=== PATIENT | male | born 1955 | race Caucasian/White ===

== ENCOUNTER 2021-12-31 09:50 | Observation (INO) | payer MEDICARE ==
[~2021-12-31] VITALS: Ht 177.8 cm; Wt 127.5 kg
[2021-12-31] MEDS ORDERED: AMLO10 PO (15:35)
[2021-12-31] MEDS ORDERED: JARDIANCE25 MG PO (15:36)
[2021-12-31] MEDS ORDERED: CARV6.25 PO (15:36)
[2021-12-31] MEDS ORDERED: FURO40 PO (15:36)
[2021-12-31] MEDS ORDERED: HYDCHL25 PO (15:36)
[2021-12-31] MEDS ORDERED: KETOROLAC TROMET5 ML BOTHEYES (15:36)
[2021-12-31] MEDS ORDERED: METF500C PO (15:37)
[2021-12-31] MEDS ORDERED: LISI20 PO (15:37)
[2021-12-31] MEDS ORDERED: Crestor20 MG PO (15:37)
[2021-12-31] MEDS ORDERED: ALDACTONE100 MG PO (15:37)
[2021-12-31] MEDS ORDERED: TOUJEO SOL300 UNIT/2 (15:40)
[2021-12-31 15:50] LABS: Calcium, Ionized (POC) 1.18 mmol/L (1.10-1.46); Chloride (POC) 109 mmol/L (98-108); Creatinine (POC) 1.6 mg/dL (0.8-1.3); Glucose (ISTAT POC) 94 mg/dL (70-99); Hemoglobin (POC) 13.6 g/dL (13.5-17.5); Potassium (POC) 6.4 mmol/L (3.5-5.5); Sodium (POC) 135 mmol/L (135-148); Total CO2 (POC) 20 mmol/L (21-32)
[2021-12-31 16:09] LABS: BASOPHILS ABSOLUTE AUTO 0.06 K/mm3 (0.00-0.23); BASOPHILS PERCENT AUTO 1 % (0-2); EOSINOPHILS ABSOLUTE AUTO 0.49 K/mm3 (0.00-0.68); EOSINOPHILS PERCENT AUTO 5 % (0-6); Hematocrit 41.9 % (37.0-53.0); Hemoglobin 13.3 g/dL (13.5-17.5); IMMATURE GRAN ABSOLUTE AUTO 0.03 K/mm3 (0.00-0.10); IMMATURE GRAN PERCENT AUTO 0 % (0-1); LYMPHOCYTES ABSOLUTE AUTO 1.88 K/mm3 (0.84-5.20); LYMPHOCYTES PERCENT AUTO 17 % (21-46); MONOCYTES ABSOLUTE AUTO 0.91 K/mm3 (0.16-1.47); MONOCYTES PERCENT AUTO 8 % (4-13); Mean Corpuscular HGB Conc 31.7 g/dL (31.5-36.5); Mean Corpuscular Volume 95 fL (80-100); Mean Platelet Volume 10.4 fL (9.1-12.4); NEUTROPHILS ABSOLUTE AUTO 7.41 K/mm3 (1.96-9.15); NEUTROPHILS PERCENT AUTO 69 % (41-73); Platelet Count 323 K/mm3 (150-400); RDW Coefficient Variation 14.1 % (11.7-14.2); RDW Standard Deviation 49.5 fL (35.1-46.3); Red Blood Cell Count 4.43 M/mm3 (4.30-5.90); White Blood Cell Count 10.78 K/mm3 (4.00-11.30)
[2021-12-31 16:29] LABS: Magnesium, Blood 2.8 mg/dL (1.6-2.4)
[2021-12-31 16:33] LABS: Bun/Creatinine Ratio 27.4 (12.0-20.0); Calcium, Blood 9.6 mg/dL (8.5-10.1); Creatinine, Blood 1.64 mg/dL (0.60-1.20)
[2021-12-31 21:57] LABS: Bun/Creatinine Ratio 26.4 (12.0-20.0); Calcium, Blood 9.3 mg/dL (8.5-10.1); Creatinine, Blood 1.44 mg/dL (0.60-1.20); Potassium, Blood 5.2 mmol/L (3.5-5.5)
[2022-01-01 04:13] LABS: BASOPHILS ABSOLUTE AUTO 0.06 K/mm3 (0.00-0.23); BASOPHILS PERCENT AUTO 1 % (0-2); EOSINOPHILS ABSOLUTE AUTO 0.47 K/mm3 (0.00-0.68); EOSINOPHILS PERCENT AUTO 5 % (0-6); Hematocrit 39.7 % (37.0-53.0); Hemoglobin 12.7 g/dL (13.5-17.5); IMMATURE GRAN ABSOLUTE AUTO 0.03 K/mm3 (0.00-0.10); IMMATURE GRAN PERCENT AUTO 0 % (0-1); LYMPHOCYTES ABSOLUTE AUTO 1.62 K/mm3 (0.84-5.20); LYMPHOCYTES PERCENT AUTO 17 % (21-46); MONOCYTES ABSOLUTE AUTO 0.88 K/mm3 (0.16-1.47); MONOCYTES PERCENT AUTO 9 % (4-13); Mean Corpuscular HGB 30.2 pg (26.0-34.0); Mean Corpuscular Volume 95 fL (80-100); Mean Platelet Volume 10.3 fL (9.1-12.4); NEUTROPHILS ABSOLUTE AUTO 6.55 K/mm3 (1.96-9.15); NEUTROPHILS PERCENT AUTO 68 % (41-73); Platelet Count 277 K/mm3 (150-400); RDW Coefficient Variation 14.1 % (11.7-14.2); RDW Standard Deviation 49.2 fL (35.1-46.3); White Blood Cell Count 9.61 K/mm3 (4.00-11.30)
[2022-01-01 04:49] LABS: Albumin, Blood 3.3 g/dL (3.4-5.0); Bilirubin, Total 0.6 mg/dL (0.1-1.0); Bun/Creatinine Ratio 25.9 (12.0-20.0); Calcium, Blood 9.2 mg/dL (8.5-10.1); Creatinine, Blood 1.35 mg/dL (0.60-1.20); Globulin, Blood 3.4 g/dL (2.2-4.0); Potassium, Blood 5.8 mmol/L (3.5-5.5); Total Protein, Blood 6.7 g/dL (6.4-8.2)
--- NOTE | 2022-01-01 05:47 | NUR ---
SHIFT SUMMARY ASSUMED CARE OF PT AT 2100. PT IS A/OX4. INDEPENDNT WITH CANE. PT REPORTS HAVING BAD KNEES. HEART SOUNDS REGULAR BUT URVASHI. PT HR DIPPPED LOW 40BPM WHILE SLEEPING BUT MAINTAINED 60-70 WHILE AWAKE. PT BP ELEVATED, MEDICATED PER EMAR. NO ACTE EVENTS.
[2022-01-01 12:37] LABS: Bun/Creatinine Ratio 25.4 (12.0-20.0); Calcium, Blood 9.9 mg/dL (8.5-10.1); Creatinine, Blood 1.18 mg/dL (0.60-1.20); Potassium, Blood 5.7 mmol/L (3.5-5.5)
--- NOTE | 2022-01-01 14:25 | NUR ---
DISCHARGE NOTE PT A&Ox4, VSS, SpO2> 92% RA. SB 50'S, BASELINE FOR HIM. DISCHARGE INSTRUCTIONS PROVIDED, AT BEDSIDE. PT TAKEN OUT VIA WHEELCHAIR WITH BELONGINGS BY CLINICAL STAFF AT APPROXIMATELY 1430.
== END 2022-01-01 14:20 | disposition home or self-care (01) ==
LOC: ER 09:50 → PCU 09:51
PROVIDERS: Family Medicine; Student in an Organized Health Care Education/Training Program; ADMIT Internal Medicine
DX: E87.5 Hyperkalemia (principal); I12.9 Hypertensive chronic kidney disease with stage 1 through stage 4 chronic kidney disease, or unspecified chronic kidney disease; N18.2 Chronic kidney disease, stage 2 (mild); E11.22 Type 2 diabetes mellitus with diabetic chronic kidney disease; E78.5 Hyperlipidemia, unspecified; G47.33 Obstructive sleep apnea (adult) (pediatric); Z79.899 Other long term (current) drug therapy; Z79.84 Long term (current) use of oral hypoglycemic drugs; Z79.4 Long term (current) use of insulin
CPT/HCPCS: 36415; 71045; 80047; 80048; 80053; 82947; 83735; 83880; 85014; 85025; 93005; 93010; 94644; 94660; 94664; 94762; 96365; 96372; 96375; 99284-25; A9270; G0378; J0360; J0610; J1650; J1815; J7030; J7799

== ENCOUNTER → 2022-11-18 | Outpatient (CLI) | payer MEDICARE ==
[~2022-11-18] MED LIST: ALDACTONE100 MG PO; AMLO10 PO; CARV6.25 PO; Crestor20 MG PO; FURO40 PO; HYDCHL25 PO; JARDIANCE25 MG PO; KETOROLAC TROMET5 ML BOTHEYES; LISI20 PO; METF500C PO; TOUJEO SOL300 UNIT/2
[2022-11-18 15:45] LABS: Prostate Specific Antigen 0.339 ng/mL (0.000-4.000)
[2022-11-19 22:10] LABS: HEMOGLOBIN A1C 8.5 % (4.8-5.6)
== END | disposition home or self-care (01) ==
LOC: LAB 09:40 → LAB SHORT 09:40
PROVIDERS: Family Medicine
DX: E11.37X1 Type 2 diabetes mellitus with diabetic macular edema, resolved following treatment, right eye (principal); E11.21 Type 2 diabetes mellitus with diabetic nephropathy; E11.59 Type 2 diabetes mellitus with other circulatory complications; E11.42 Type 2 diabetes mellitus with diabetic polyneuropathy
CPT/HCPCS: 83036; G0103

== ENCOUNTER → 2024-04-05 | Outpatient (CLI) | payer MEDICARE ==
[2024-04-05 18:56] LABS: Creatinine, Urine Random 23.2 mg/dL (27.00-270.00); Microalb/Creat Ratio UR, Rand 810.345 mg/g (0.000-30.000)
== END | disposition home or self-care (01) ==
LOC: LAB 15:54 → LAB SHORT 15:54
PROVIDERS: Family Medicine
DX: N18.32 Chronic kidney disease, stage 3b (principal)
CPT/HCPCS: 82043; 82570